=== PATIENT | male | born 2000 | race Caucasian/White ===

== ENCOUNTER 2022-07-26 06:15 | Outpatient (CLI) | payer MEDICAID, SELFPAY ==
--- NOTE | 2022-07-26 07:00 | US_ITS ---
WS: [id number] TESTICULAR ULTRASOUND HISTORY: RIGHT testicular pain. COMPARISON: None available. TECHNIQUE: Real-time and color Doppler imaging or utilized to perform a testicular ultrasound. Right testicle: 5.1 cm x 3.8 cm x 2.4 cm. Normal size and echogenicity. No mass or torsion. Normal color Doppler is present throughout. Systolic and diastolic velocities are both present. No significant hydrocele. Right epididymis: Normal size epididymis. Spermatocele within the RIGHT epididymal head measures 8 x 8 mm. No increased vascularity within the epididymis. Left testicle: 5.3 cm x 3.7 cm x 2.5 cm. Normal size and echogenicity. No mass or torsion. Normal color Doppler is present throughout. Systolic and diastolic velocities are both present. No significant hydrocele. Left epididymis: Normal epididymis with no increased vascularity. US/US scrotum [id number] IMPRESSION: 1. No testicular mass or torsion. 2. Symmetric color Doppler within each testicle. 3. Small RIGHT epididymal spermatocele.
== END 2022-07-26 06:16 | disposition home or self-care (01) ==
LOC: RAD 06:15
PROVIDERS: PCP Family Medicine; Visit Provider Family Medicine
DX: N50.89 Other specified disorders of the male genital organs (principal); N43.41 Spermatocele of epididymis, single
CPT/HCPCS: 76870

== ENCOUNTER 2023-10-11 09:44 | Emergency (ER) | payer SELFPAY ==
[2023-10-11 09:46] VITALS: BP 136/76; PULSE 78; RESP 20; O2SAT 100; BMI 24.3
--- NOTE | 2023-10-11 09:51 | XR_ITS ---
WS: [id number] Exam: XR KUB [id number] Date/Time of Exam: 10/11/2023 9:51 AM Reason For Exam: fb No bowel obstruction or free air. No sign of organ enlargement. No radiopaque foreign bodies are visu alized. IMPRESSION: 1. No acute finding. No radiopaque foreign body visualized.
--- NOTE | 2023-10-11 09:51 | XR_ITS ---
WS: [id number] Exam: XR chest 1V portable [id number] Date/Time of Exam: 10/11/2023 9:51 AM Reason For Exam: fb Comparison 05/13/2010. Findings: The lungs are clear and fully expanded. Costophrenic angles are sharp. No infiltrates. Bronchovascula r relief appears normal. Cardiac silhouette is unremarkable. Bony elements are intact. IMPRESSION: Unremarkable chest radiograph.
--- NOTE | 2023-10-11 09:59 | ED_ITS ---
HPI - General Adult General: Chief complaint: Airway/Esophagus Foreign Body Stated complaint: Swallowed water bottle cap Time Seen by Provider: 10/11/23 09:50 Source: patient and EMS Mode of arrival: EMS Limitations: no limitations History of Present Illness: 23-year-old male states he accidentally swallowed a water bottle Just prior to arrival. He states he had his mouth and accidentally swallowed it states he would like it may be stuck he is having some pain is upper abdomen and chest denies any shortness of breath denies any worsening proving factors currently. Associated symptoms: Deny chest pain, dyspnea, headache(s), nausea, rash or vomiting Review of Systems Const: Denies: fever(s), chills, body aches or change in appetite Eyes: Denies: blurry vision or eye discomfort ENMT: Denies: throat pain or dental pain Card: Denies: chest pain Resp: Denies: dyspnea GI: Denies: abdominal pain, nausea, vomiting or diarrhea : Denies: dysuria Musc: Denies: neck pain or back pain Skin/Breast: Denies: rash Neuro: Denies: headache(s) PFSH ED PFSH: Medical History No pertinent past medical history Surgical History No pertinent past surgical history Family History Grandmother Cancer Family/Other Cancer Mother Bone disease History of bone cyst Denies family history of Diabetes CAD (coronary artery disease) Clotting disorder Psychiatric illness Bleeding disorder Social History Smoking and tobacco/nicotine status: current every day tobacco/nicotine user cigarettes Packs smoked per day: 1 Years cigarettes smoked: 2 Second hand smoke exposure: Yes Alcohol intake: current Alcohol intake frequency: holidays/special occasions only Substance/Drug Use: never Adopted: No Lives independently: Yes Household members: family Marital status: Single Current occupational status: unemployed Current gender identity: Male Physical Exam Const: COMMON NORMALS: no acute distress, patient oriented x3 and healthy appearing HENMT: COMMON NORMALS: normocephalic and atraumatic HEAD & SCALP: normocephalic and atraumatic Eye: COMMON NORMALS: conjunctivae normal CONJUNCTIVA: Yes conjunctivae normal Neck/C-Spine: COMMON NORMALS: full ROM and supple Chest: COMMONS NORMALS: normal inspection of the chest Resp: COMMON NORMALS: normal respiratory effort, No retractions, No use of accessory muscles and clear to auscultation bilaterally AUSCULTATION: clear to auscultation bilaterally Cardio: COMMON NORMALS: regular rate, regular rhythm and No murmurs present (Cardio) RATE: regular rate RHYTHM: regular rhythm Extremity: COMMON NORMALS: normal to inspection and full ROM Neuro: COMMON NORMALS: patient oriented x3, moves all extremities and no focal motor deficits Psych: COMMON NORMALS: mental status grossly normal, Normal thought process present and cooperative THOUGHT PROCESS: Normal thought process present Skin: COMMON NORMALS: no rashes or lesions noted and no wounds GENERAL SKIN EXAM: no rashes or lesions noted Course Vital Signs: Vital signs: Vital Signs Pulse Rate 78 10/11/23 09:46 Respiratory Rate 20 H 10/11/23 09:46 Blood Pressure 136/76 10/11/23 09:46 Pulse Oximetry 100 10/11/23 09:46 Oxygen Delivery Me thod Room Air 10/11/23 09:46 MDM - General Adult Medical Decision Making Patient presents here with a swallowed foreign body as a bottle Of CT shows no signs of being stuck in his esophagus is no signs of aspirating and he is well- appearing here is feeling improved feel he stable for discharge this time he is worsening he is return he understands agrees to plan All radiology interpretation(s) finalized by discharge Discharge Plan Discharge Patient Disposition: Home Clinical Impression: Foreign body, swallowed Condition: Stable Prescriptions: No Action loratadine 10 mg Capsule 10 mg PO DAILY PRN (Reason: Allergy Symptoms) Discharge Orders: Discharge ED (Routine); Ordered 10/11/23 Ordered By: Hugh Chamorro Referrals: Danae Vincent MD [Primary Care Provider] - 1-3 days Discharge Diet: Advance as tolerated Discharge Activity: Resume usual activity Patient Instructions: Foreign Body - Swallowed, Foreign Body Ingestion (ED) Coding Level of Care Code ED 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
[2023-10-11] MEDS: lidocaine 2% viscous 15 ML, aluminum-mag hydrox-simethicon 30 ML, sucralfate oral liq 1 GM PO (10:02)
[2023-10-11] MEDS: glucagon 1 mg/mL KIT 1 mL IM (10:48)
[2023-10-11] MEDS: ondansetron 2 mg/ML SDV 2 mL 4 MG IVP (10:51)
--- NOTE | 2023-10-11 11:35 | CT_ITS ---
WS: [id number] CT NECK WITHOUT CONTRAST HISTORY: swallow fb TECHNIQUE: Contiguous 2 mm axial images are performed through the neck with intravenous contrast. Sag ittal and coronal reformats are also submitted. All CT scans at [facility] use at least one o f these dose optimization techniques: automated exposure control; mA and/or kV adjustment per patient size (includes targeted exams where dose is matched to clinical indication); or iterative reconstruc tion. CONTRAST: CONTRAST: None DLP: 230.70 mGy.cm COMPARISON: None available. Nasopharynx, oropharynx, hypopharynx and larynx are unremarkable. No soft tissue masses or abnormal e nhancement. Symmetric appearance to the airway. No foreign bodies identified. Torus tubarius and fossa of Rosenmuller and parapharyngeal fat are normal. No significant lymphadenopathy is identified. Thyroid gland and salivary glands are normally enhancing with no masses. No osseous abnormalities. Visualized portions of the skull base demonstrate no abnormalities. Orbits and globes are within norm al limits. No soft tissue masses. Visualized paranasal sinuses and mastoid air cells are normal. Lung apices are clear. IMPRESSION: Unremarkable neck CT. No radiopaque foreign body identified.
--- NOTE | 2023-10-11 11:35 | CT_ITS ---
WS: [id number] CT chest wo con [id number] HISTORY: swallow fb, plastic. TECHNIQUE: Axial imaging performed through the thorax. Coronal and sagittal reformats are submitted. All CT scans at [facility] use at least one of these dose optimization techniques: automated exposure control; mA and/or kV adjustment per patient size (includes targeted exams where dose is mat ched to clinical indication); or iterative reconstruction. CONTRAST: None DLP: 351.81 mGy.cm COMPARISON: None available. Lungs and central airway: Normal. Pleura: Normal. No pleural effusion. Heart and pericardium: Normal size heart with no pericardial effusion. Mediastinum and niurka: No mediastinum or hilar adenopathy. No mediastinal air. Vessels: Normal size aortic and pulmonary artery. No coronary artery calcifications. Chest wall and lower neck: No soft tissue masses. Upper abdomen: Normal. Osseous structures: No destructive process. IMPRESSION: Negative chest CT. No foreign body is noted within the chest or upper abdomen. Depending on the liliya nt of the plastic sometimes it is difficult to visualize by CT.
[2023-10-11 12:38] VITALS: BP 136/76; PULSE 78; RESP 20; O2SAT 100
== END 2023-10-11 12:39 | disposition home or self-care (01) ==
PROVIDERS: Emergency Provider Emergency Medicine; PCP Family Medicine
DX: T18.9XXA Foreign body of alimentary tract, part unspecified, initial encounter (principal); W44.E9XA Other non-magnetic metal objects entering into or through a natural orifice, initial encounter; F17.210 Nicotine dependence, cigarettes, uncomplicated
CPT/HCPCS: 70490; 71045; 71250; 74018; 96372; 96374; 99285; J1610; J2405

== ENCOUNTER 2024-08-13 22:38 | Emergency (ER) | payer SELFPAY ==
[2024-08-13 22:46] VITALS: BP 134/84; PULSE 105; RESP 16; TEMP 38.3; O2SAT 97
--- NOTE | 2024-08-13 22:53 | XRR_ITS ---
PROCEDURE INFORMATION: Exam: XR Chest Exam date and time: 08/13/2024 11:09 PM Age: 23 years old Clinical indication: Cough and fever; Additional info: Cough/fevers TECHNIQUE: Imaging protocol: Radiologic exam of the chest. Views: 1 view. COMPARISON: CT chest con [id number] 10/11/2023 11:45 AM FINDINGS: Lungs: Unremarkable. No consolidation. Pleural spaces: Unremarkable. No pleural effusion. No pneumothorax. Heart/Mediastinum: Unremarkable. No cardiomegaly. Bones/joints: Unremarkable. XR/XR chest 1V portable [id number] IMPRESSION: No acute findings.
--- NOTE | 2024-08-13 22:54 | ED_ITS ---
HPI - General Adult General: Chief complaint: Upper Respiratory Infection Stated complaint: Fever\V\Sore Throat Time Seen by Provider: 08/13/24 22:39 Source: patient Mode of arrival: ambulatory Limitations: no limitations History of Present Illness: Patient is a 23-year-old male who presents to ED today lanes of onset of fevers up to 104, diffuse body aches, chills, sore throat, nasal congestion, and a cough. Symptoms all starting today. Denies known sick contact. States he does work at [employer] and around the general public. He had one episode of vomiting this morning. He is not having any abdominal pain. No changes in bowel movements. No urinary symptoms. No rash. He denies severe headache or neck pain/stiffness. Onset (ago): hour(s) Severity: moderate Pain Consistency: constant Relieving factors: none Exacerbating factors: none Associated symptoms: Reports vomiting (x 1 this AM); Deny chest pain, dyspnea, headache(s), nausea or rash Treatments prior to arrival: NSAID Related Data Home Medications Medication Instructions Recorded Confirmed loratadine 10 mg capsule 10 mg PO DAILY PRN Allergy Symptoms 10/11/23 10/11/23 Allergies Allergy/AdvReac Type Severity Reaction Status Date / Time aspirin Allergy Unknown Verified 12/23/22 13:26 Review of Systems Const: Reports: fever(s), chills and body aches Eyes: Denies: change in vision ENMT: Reports: throat pain, odynophagia and nasal congestion; Denies: ear or mastoid pain Card: Denies: chest pain Resp: Reports: non-productive cough; Denies: dyspnea, wheezing, hemoptysis or chest congestion GI: Reports: vomiting (x 1 this AM); Denies: abdominal pain, nausea or diarrhea : Denies: flank pain, difficulty urinating, dysuria, urinary frequency, urinary urgency or urinary hesitancy Musc: Reports: other (diffuse body aches); Denies: neck pain, back pain, extremity pain, extremity swelling, joint pain or joint swelling Skin/Breast: Denies: rash Neuro: Denies: headache(s), numbness in extremities, weakness in extremities, sensory changes or dizziness PFSH ED PFSH: Medical History No pertinent past medical history Surgical History No pertinent past surgical history Family History Grandmother Cancer Family/Other Cancer Mother Bone disease History of bone cyst Denies family history of Diabetes CAD (coronary artery disease) Clotting disorder Psychiatric illness Bleeding disorder Social History Smoking and tobacco/nicotine status: current every day tobacco/nicotine user cigarettes Packs smoked per day: 1 Years cigarettes smoked: 2 Second hand smoke exposure: Yes Alcohol intake: current Alcohol intake frequency: holidays/special occasions only Substance/Drug Use: never Adopted: No Lives independently: Yes Household members: family Marital status: Single Current occupational status: unemployed Current gender identity: Male Physical Exam Const: COMMON NORMALS: no acute distress, average body habitus, patient oriented x3, no limitations, alert and well nourished GENERAL APPEARANCE: cooperative and ill appearing ORIENTATION/CONSCIOUSNESS: Yes awake, Yes oriented to person, Yes oriented to place and Yes oriented to time HENMT: COMMON NORMALS: normocephalic, atraumatic, hearing grossly normal bilaterally, external ears normal, EAC's normal, TM's normal bilaterally, Normal external nose present, Normal nasal mucous membranes and turbinates present and moist oral mucous membranes HEAD & SCALP: normal to inspection, normocephalic and atraumatic FACE & SINUS: normal facial exam and sinuses nontender NOSE: Normal external nose present and Normal nasal mucous membranes and turbinates present EXTERNAL EAR: Yes external ears normal EXTERNAL AUDITORY CANAL: EAC's normal TYMPANIC MEMBRANE: TM's normal bilaterally MOUTH: Normal oral and palatal mucosa present and lip normal THROAT: posterior oropharynx normal, uvula midline and abnormal tonsil bilateral erythema, exudates and hypertrophy Eye: COMMON NORMALS: Equal, round and reactive pupils present, EOMs intact bilaterally and conjunctivae normal CONJUNCTIVA: Yes conjunctivae normal PUPIL: Yes Equal, round and reactive pupils present Neck/C-Spine: COMMON NORMALS: no lymphadenopathy Resp: COMMON NORMALS: normal respiratory effort and clear to auscultation bilaterally AUSCULTATION: clear to auscultation bilaterally Cardio: COMMON NORMALS: regular rhythm RATE: tachycardic (mild-febrile) RHYTHM: regular rhythm GI: COMMON NORMALS: Normal to inspection, nondistended, normoactive bowel so unds present, Soft to palpation and non-tender PALPATION: Yes Soft to palpation Extremity: GENERAL: Yes normal exam except as noted Neuro: PAM COMA SCALE: document GCS findings Pam coma scale eye opening: Spontaneous [place] coma scale verbal response: Orientated Pam coma scale motor response: Obey commands Pam coma scale total score: 15 COMMON NORMALS: patient oriented x3, moves all extremities, no focal motor deficits and no sensory deficits noted SENSORIUM/ORIENTATION: Yes alert, Yes oriented to person, Yes oriented to place and Yes oriented to time Skin: COMMON NORMALS: no rashes or lesions noted GENERAL SKIN EXAM: no rashes or lesions noted Course Vital Signs: Vital signs: Vital Signs Temperature 100.9 F H 08/13/24 22:46 Pulse Rate 91 08/13/24 23:08 Respiratory Rate 16 08/13/24 22:46 Blood Pressure 130/75 08/13/24 23:08 Pulse Oximetry 96 08/13/24 23:08 Oxygen Delivery Me thod Room Air 08/13/24 23:08 MDM - General Adult Medical Decision Making Patient's COVID/flu/RSV swab is negative. He is positive for strep. CXR is unremarkable. Patient was treated with IM Bicillin prior to discharge. Return precautions discussed. Medical Records I reviewed the patient's medical records. Lab Data I reviewed the patient's lab results. Laboratory Results Coronavirus (PCR) Negative (Negative) 08/13/24 22:54 Influenza A (PCR) Negative (Negative) 08/13/24 22:54 Influenza Type B (PCR) Negative (Negative) 08/13/24 22:54 RSV (PCR) Negative (Negative) 08/13/24 22:54 Group A Strep Rapid Positive (Negative) H 08/13/24 22:54 XR interpretation done by ED provider, pending radiology final review Discharge Plan Discharge Patient Disposition: Home Clinical Impression: Acute streptococcal tonsillitis Qualifiers: Streptococcal tonsillitis recurrence: non-recurrent Qualified Code(s): J03.00 - Acute streptococcal tonsillitis, unspecified Condition: Stable Prescriptions: No Action loratadine 10 mg Capsule 10 mg PO DAILY PRN (Reason: Allergy Symptoms) Discharge Orders: Discharge ED (Routine); Ordered 08/13/24 Ordered By: Kelly Low Patient Instructions: Strep Throat (DC), Strep Throat - Adult Activity Restrictions/Additional Instructions: As we discussed, you tested positive for strep. Your COVID/flu/RSV swab was negative. Your chest x-ray appears normal. You were given IM antibiotics for your strep and do not require any further antibiotics at this time. You need to continue alternating 1000mg Tylenol every 4-6 hours and 800mg Ibuprofen every 6- 8 hours for treatment of your fevers and body aches. You need to return to the emergency department for worsening symptoms, uncontrollable fevers, inability to swallow, difficulty breathing, generally feeling worse or unwell, or any other concerns you may have. I hope you begin to feel better soon. 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
[2024-08-13 23:08] VITALS: BP 130/75; PULSE 91; O2SAT 96
[2024-08-13 23:10] LABS: Rapid Strep A Test Positive (Negative)
[2024-08-13 23:39] LABS: Covid PCR NEGATIVE (Negative); Influenza A NEGATIVE (Negative); Influenza B NEGATIVE (Negative); Respiratory Syncytial Virus Ce NEGATIVE (Negative)
[2024-08-13] MEDS: penicillin g (L-A) 1,200,000 unit/2 mL Syr 1200000 UNIT IM (23:49)
[2024-08-14 00:04] VITALS: BP 127/73; PULSE 80; O2SAT 93
== END 2024-08-14 00:06 | disposition home or self-care (01) ==
PROVIDERS: Emergency Provider Physician Assistant
DX: J03.00 Acute streptococcal tonsillitis, unspecified (principal); Z11.52 Encounter for screening for COVID-19; F17.210 Nicotine dependence, cigarettes, uncomplicated
CPT/HCPCS: 71045; 87637; 87880; 96372; 99284; J0561

== ENCOUNTER 2024-09-20 11:48 | Inpatient (IN) | payer SELFPAY ==
[2024-09-20 11:52] VITALS: BP 136/92; PULSE 112; RESP 18; TEMP 36.7; O2SAT 99; BMI 24.3
[2024-09-20 12:33] LABS: Basophils # 0.1 10^3/uL (0.0-0.1); Basophils % 0.4 %; Eosinophils # 0.1 10^3/uL (0.0-0.8); Eosinophils % 0.7 %; Hematocrit 51.1 % (37-53); Lymphocytes # 2.2 10^3/uL (0.8-4.8); Lymphocytes % 19.4 %; Mean Corpuscular HGB Conc 34.2 g/dL (30-55); Mean Corpuscular Hemoglobin 30.9 pg (27-33); Mean Corpuscular Volume 90.1 fl (82-101); Mean Platelet Volume 10.2 fL (7.4-10.4); Monocytes # 0.7 10^3/uL (0.2-0.9); Neutrophils # 8.38 10^3/uL (1.8-7.7); Neutrophils % 72.9 %; Nucleated Red Blood Cells % 0 %; Platelet Count 263 10^3/cmm (157-399); Red Blood Count 5.67 10^6/uL (3.85-5.65); Red Cell Distribution Width 11.8 % (12.1-15.1)
[2024-09-20 12:44] LABS: Acetaminophen < 5.0 ug/mL (10-30); Alanine Aminotransferase 18 U/L (0-41); Alcohol Level < 10 mg/dL (0-10); Alkaline Phosphatase 125 U/L (40-130); Anion Gap 24.4 (5-19); Aspartate Amino Transferase 20 U/L (0-40); Blood Urea Nitrogen 13 mg/dL (6-20); Calcium 9.9 mg/dL (8.5-10.5); Carbon Dioxide 18 mmol/L (22-29); Chloride 99 mmol/L (98-107); Creatinine Clr Calc Pharmacy 134.7746; Globulin 3.2 g/dL (1.3-4.6); Glomerular Filtration Rate 104.6 mL/min (90-130); Glucose 112 mg/dL (65-115); Osmolality Calculated 287 mOsm/kg (285-295); Potassium 3.4 mmol/L (3.5-5.1); Salicylate < 0.3 mg/dL (3-10); Sodium 138 mmol/L (136-145); Total Bilirubin 1.1 mg/dL (0.15-1.2); Total Protein 8.2 g/dL (6.6-8.7)
--- NOTE | 2024-09-20 12:54 | ED.C_ITS ---
HPI - Psych 2 General: Chief Complaint: Psychiatric Symptoms Stated Complaint: MHE Time Seen by Provider: 09/20/24 11:55 Source: patient Mode of arrival: ambulatory Limitations: no limitations History of Present Illness: This patient made his way to the [facility] today on a voluntary basis. He was brought here by his mother and his saundra with whom he lives. He states over the past 2 weeks or more he has had feelings of sadness and depression. He states that he has had some dreams which seem to be pervasive and he felt like he was actually in the dream and he had bad thoughts which included thoughts of not wanting to be living anymore. He had no specific plan on harming himself. He does states that he has been drinking alcohol more over the past couple weeks but he does not know why. Previously he drank very infrequently. He denies any history of depression or mental illness. He states his appetite is then decreased over the past couple weeks but he has been sleeping okay. 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 His relationship has been stable however he has been recently moved in with his saundra at his saundra's parents which has been a bit stressful for him in addition to some other external stressors such as increasing bills a car that needs repair etc. he does use marijuana on a regular basis but obtained from the dispensary MD complaint: feels depressed Duration: getting worse Associated psychiatric symptoms: depression Associated symptoms: Reports depression and suicidal ideation; Deny auditory hallucinations Related Data Home Medications ?Medication ?Instructions ?Recorded ?Confirmed loratadine 10 mg capsule 10 mg PO DAILY PRN Allergy S ymptoms 10/11/23 09/20/24 Allergies Allergy/AdvReac Type Severity Reaction Status Date / Time aspirin Allergy Unknown Verified 12/23/22 13:26 Review of Systems 2 Const: Denies: fever(s) or chills Eyes: Denies: change in vision ENMT: Denies: throat pain or odynophagia Card: Denies: chest pain, palpitations, irregular heart rhythm, syncope or pre-syncope Resp: Denies: dyspnea, productive cough or non-productive cough GI: Denies: abdominal pain, nausea, vomiting or diarrhea : Denies: flank pain, difficulty urinating, dysuria or urinary frequency Musc: Denies: neck pain, back pain, extremity pain or extremity swelling Skin/Breast: Denies: rash Neuro: Denies: headache(s), numbness in extremities, weakness in extremities, dizziness or confusion Psych: Reports: depression, loss of interest, change in appetite and suicidal ideation; Denies: auditory hallucinations or tactile hallucinations PFSH ED 2 PFSH: Medical History No pertinent past medical history Surgical History No pertinent past surgical history Family History Grandmother Cancer Family/Other Cancer Mother Bone disease History of bone cyst Denies family history of Diabetes CAD (coronary artery disease) Clotting disorder Psychiatric illness Bleeding disorder Social History Smoking and tobacco/nicotine status: current every day tobacco/nicotine user cigarettes Packs smoked per day: 1 Years cigarettes smoked: 2 Second hand smoke exposure: Yes Alcohol intake: current Alcohol intake frequency: holidays/special occasions only Substance/Drug Use: never Adopted: No Lives independently: Yes Household members: family Marital status: Single Current occupational status: unemployed Current gender identity: Male Physical Exam 2 Narrative: EXAM NARRATIVE: He makes good eye contact and answers questions however he has speaks in a low volume voice with monotonous tone Const: COMMON NORMALS: average body habitus, patient oriented x3, healthy appearing and alert GENERAL APPEARANCE: cooperative HENMT: COMMON NORMALS: Normal nasal mucous membranes and turbinates present and moist oral mucous membranes NOSE: Normal nasal mucous membranes and turbinates present Eye: COMMON NORMALS: Equal, round and reactive pupils present and conjunctivae normal CONJUNCTIVA: Yes conjunctivae normal PUPIL: Yes Equal, round and reactive pupils present Neck/C-Spine: COMMON NORMALS: full ROM Resp: COMMON NORMALS: normal respiratory effort and No use of accessory muscles EFFORT & INSPECTION: Yes able to speak in complete sentences Cardio: COMMON NORMALS: regular rate and regular rhythm RATE: regular rate RHYTHM: regular rhythm GI: COMMON NORMALS: Normal to inspection, nondistended, normoactive bowel sounds present Back/Pelvis: COMMON NORMALS: thoracic and lumbar spine normal to inspection and thoraco-lumbar ROM normal Extremity: COMMON NORMALS: normal to inspection and full ROM Neuro: COMMON NORMALS: patient oriented x3, moves all extremities, no focal motor deficits and no sensory deficits noted SENSORIUM/ORIENTATION: Yes alert Psych: COMMON NORMALS: mental status grossly normal and Normal thought process present ATTITUDE: Yes Withdrawn affect present ACTIVITY/MOTOR BEHAVIOR: Y es appropriate eye contact SPEECH: Yes soft MOOD & AFFECT: Yes depressed mood THOUGHT PROCESS: Normal thought process present THOUGHT CONTENT: Yes Suicidality present INSIGHT: Fair insight present (Psych) JUDGEMENT: Fair judgement present (Psych) Skin: COMMON NORMALS: no rashes or lesions noted and no jaundice GENERAL SKIN EXAM: no rashes or lesions noted Course 2 Reevaluation(s): Reevaluation #1: Discussed eventual plans of care with the patient. He is risk of self-harm is certainly not high but it certainly also uncertain at this time. Given that this is Monday and the logistics of getting him outpatient follow-up quickly is limited discussed with the attending psychiatrist and we will plan on putting him in observational status for rehab mental health evaluation and potential initiation of antidepressant. The patient is willing to do so. Time: 13:32 Consultations: Consultation #1: Discussed with Dr. Hale who agrees to plan of care Time: 13:34 Vital Signs: Vital signs: Vital Signs Temperature 98.0 F 09/20/24 11:52 Pulse Rate 112 H 09/20/24 11:52 Respiratory Rate 18 09/20/24 11:52 Blood Pressure 136/92 09/20/24 11:52 Pulse Oximetry 99 09/20/24 11:52 Oxygen Delivery Me thod Room Air 09/20/24 11:52 MDM - Psych Medical Decision Making This patient presented as noted in the HPI. He did have evidence of acute depression this been precipitated by unknown but likely social and family stressors that has worsened over the past 2 weeks with no prior mental health illness history. There has been suicidal ideations without plan. There was no evidence of a ongoing medical condition that would be contributory to his current presentation and he is medically cleared and given his current presentation is reasonable for us to put him in [employer] used for mental health evaluation and initiation of treatment as indicated. Differential Diagnosis Likely depression Lab Data 09/20/24 11:55 09/20/24 11:55 Laboratory Results WBC 11.50 10^3/uL (3.29-11.43) H 09/20/24 11:55 RBC 5.67 10^6/uL (3.85-5.65) H 09/20/24 11:55 Hgb 17.50 g/dL (11.27-16.99) H 09/20/24 11:55 Hct 51.1 % (37-53) 09/20/24 11:55 MCV 90.1 fl (82-101) 09/20/24 11:55 MCH 30.9 pg (27-33) 09/20/24 11:55 MCHC 34.2 g/dL (30-55) 09/20/24 11:55 RDW 11.8 % (12.1-15.1) L 09/20/24 11:55 Plt Count 263 10^3/cmm (157-399) 09/20/24 11:55 MPV 10.2 fL (7.4-10.4) 09/20/24 11:55 Neut % (Auto) 72.9 % 09/20/24 11:55 Lymph % (Auto) 19.4 % 09/20/24 11:55 [place] % (Auto) 6.0 % 09/20/24 11:55 Eos % (Auto) 0.7 % 09/20/24 11:55 Baso % (Auto) 0.4 % 09/20/24 11:55 Neut # (Auto) 8.38 10^3/uL (1.8-7.7) H 09/20/24 11:55 Lymph # (Auto) 2.2 10^3/uL (0.8-4.8) 09/20/24 11:55 [place] # (Auto) 0.7 10^3/uL (0.2-0.9) 09/20/24 11:55 Eos # (Auto) 0.1 10^3/uL (0.0-0.8) 09/20/24 11:55 Baso # (Auto) 0.1 10^3/uL (0.0-0.1) 09/20/24 11:55 Nucleated RBC % (auto) 0 % 09/20/24 11:55 Nucleated RBCs # 0.0 /100WBC 09/20/24 11:55 Sodium 138 mmol/L (136-145) 09/20/24 11:55 Potassium 3.4 mmol/L (3.5-5.1) L 09/20/24 11:55 Chloride 99 mmol/L (98-107) 09/20/24 11:55 Carbon Dioxide 18 mmol/L (22-29) L 09/20/24 11:55 Anion Gap 24.4 (5-19) H 09/20/24 11:55 BUN 13 mg/dL (6-20) 09/20/24 11:55 Creatinine 0.9 mg/dL (0.7-1.2) 09/20/24 11:55 GFR Calculation 104.6 mL/min (90-130) 09/20/24 11:55 Glucose 112 mg/dL (65-115) 09/20/24 11:55 Calculated Osmolality 287 mOsm/kg (285-295) 09/20/24 11:55 Calcium 9.9 mg/dL (8.5-10.5) 09/20/24 11:55 Total Bilirubin 1.1 mg/dL (0.15-1.2) 09/20/24 11:55 AST 20 U/L (0-40) 09/20/24 11:55 ALT 18 U/L (0-41) 09/20/24 11:55 Alkaline Phosphatase 125 U/L (40-130) 09/20/24 11:55 Total Protein 8.2 g/dL (6.6-8.7) 09/20/24 11:55 Albumin 5.0 g/dL (3.5-5.2) 09/20/24 11:55 Globulin 3.2 g/dL (1.3-4.6) 09/20/24 11:55 Salicylates < 0.3 mg/dL (3-10) L 09/20/24 11:55 Urine Opiates Screen Negative ng/mL (Negative) 09/20/24 12:06 Acetaminophen < 5.0 ug/mL (10-30) L 09/20/24 11:55 Ur Barbiturates Screen Negative ng/mL (Negative) 09/20/24 12:06 Ur Phencyclidine Scrn Negative ng/mL (Negative) 09/20/24 12:06 Ur Amphetamines Screen Negative ng/mL (Negative) 09/20/24 12:06 U Benzodiazepines Scrn Negative ng/mL (Negative) 09/20/24 12:06 Urine Cocaine Screen Negative ng/mL (Negative) 09/20/24 12:06 U Marijuana (THC) Screen Positive ng/mL (Negative) H 09/20/24 12:06 Ethyl Alcohol < 10 mg/dL (0-10) 09/20/24 11:55 No radiology studies performed this visit Discharge Plan Discharge Patient Disposition: Admitted As Inpatient Clinical Impression: Depression Condition: Stable Prescriptions: No Action loratadine 10 mg Capsule 10 mg PO DAILY PRN (Reason: Allergy Symptoms) Print Language: Estonian Coding Level of Care Code ED Manager Photography 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
[2024-09-20 12:55] LABS: Amphetamines Screen Urine Negative (Negative); Barbiturates Screen Urine Negative (Negative); Benzodiazepines Screen Urine Negative (Negative); Cocaine Screen Urine Negative (Negative); Opiate Screen Urine Negative (Negative); PCP Screen Urine Negative (Negative); THC Screen Urine Positive (Negative)
[2024-09-20] MEDS: nicotine 14 mg Patch 1 PATCH TRANSDERMA (13:27)
[2024-09-20 15:16] VITALS: BP 139/86; PULSE 89; RESP 16; TEMP 36.3; O2SAT 98
[2024-09-20] MEDS: hyDROXYzine 25 mg Capsule 50 MG PO (17:43)
--- NOTE | 2024-09-20 17:43 | PC.NURSE ---
PRN VISTARIL 50 MG GIVEN PO PER PT C/O STATED ANXIETY
[2024-09-20 22:00] VITALS: BP 129/91; PULSE 103; RESP 18; TEMP 36.3; O2SAT 95
[2024-09-20] MEDS: trazodone 50 mg Tablet PO (22:39)
[2024-09-20] MEDS: OLANZapine 5 mg ODT PO (22:39)
[2024-09-21 06:00] VITALS: BP 113/70; PULSE 81; RESP 16; TEMP 36.3; O2SAT 99
--- NOTE | 2024-09-21 07:52 | W.PM.NPUH&PS ---
Providers/Chief Complaint Admitting Physician: Royer Hale MD Chief Complaint: MHE [facility] NPU History of Present Illness Kalyan Reed is a 24 year old male Chief Complaint: Psychiatric Symptoms Stated Complaint: MHE Time Seen by Provider: 09/20/24 11:55 Source: patient Mode of arrival: ambulatory Limitations: no limitations History of Present Illness: This patient made his way to the [facility] today on a voluntary basis. He was brought here by his mother and his fianc?e with whom he lives. He states over the past 2 weeks or more he has had feelings of sadness and depression. He states that he has had some dreams which seem to be pervasive and he felt like he was actually in the dream and he had bad thoughts which included thoughts of not wanting to be living anymore. He had no specific plan on harming himself. He does states that he has been drinking alcohol more over the past couple weeks but he does not know why. Previously he drank very infrequently. He denies any history of depression or mental illness. He states his appetite is then decreased over the past couple weeks but he has been sleeping okay. 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 His relationship has been stable however he has been recently moved in with his fidallin?e at his fracnia?e's parents which has been a bit stressful for him in addition to some other external stressors such as increasing bills a car that needs repair etc. he does use marijuana on a regular basis but obtained from the dispensary MD complaint: feels depressed Duration: getting worse Associated psychiatric symptoms: depression Associated symptoms: Reports depression and suicidal ideation; Deny auditory hallucinations. He was admitted to the neuropsychiatric unit for definitive treatment of those issues. He is unknown to [facility] psychiatry through inpatient or outpatient services. But presents today reporting being very depressed and needing help. Meds NPU Home Medications ?Medication ?Instructions ?Recorded ?Confirmed ?Last Taken ?Type No Known Home Medications 09/20/24 09/20/24 Unknown History Allergies Allergy/AdvReac Type Severity Reaction Status Date / Time aspirin Allergy Unknown Verified 12/23/22 13:26 PFS NPU PFSH: Medical History No pertinent past medical history Surgical History No pertinent past surgical history Family History Grandmother Cancer Family/Other Cancer Mother Bone disease History of bone cyst Denies family history of Diabetes CAD (coronary artery disease) Clotting disorder Psychiatric illness Bleeding disorder Social History Smoking and tobacco/nicotine status: current every day tobacco/nicotine user cigarettes Packs smoked per day: 1 Years cigarettes smoked: 2 Second hand smoke exposure: Yes Alcohol intake: current Alcohol intake frequency: holidays/special occasions only Substance/Drug Use: never Adopted: No Lives independently: Yes Household members: family Marital status: Single Current occupational status: unemployed Current gender identity: Male Mental Status Exam MSE Comments: This is a well-nourished well-developed white male in hospital scrubs with limited grooming and eye contact. No abnormal movements except for psychomotor retardation. Cooperative with exam in mild to moderate distress. Speech was decreased rate and volume. Mood described as depressed, affect congruent and subdued. Thought process was organized. Thought content: Patient endorsed some suicidal feelings but denied homicidal ideation, there were no delusions reported or noted, he denied any auditory or visual hallucinations. Attention and concentration were intact and memory appeared mostly reliable but no more formally tested. He is alert and oriented x 3. Insight, judgment and impulse control are limited versus impaired. Vitals/I&O/Wt Last Vital Signs Temp 97.4 F L 09/21/24 06:00 Pulse 81 09/21/24 06:00 Resp 16 09/21/24 06:00 BP 113/70 09/21/24 06:00 Pulse Ox 99 09/21/24 06:00 O2 Del Method Room Air 09/20/24 15:22 Weight last 48 hrs Weight 77.111 kg Data NPU 09/20/24 11:55 09/20/24 11:55 A&P Assessment and plan Plan This is a 24-year-old white male with reported struggles recently with depression and anxiety but no previous exposure to medication who presents open to a trial of medication and getting connected with treatment. 1. Start Prozac 20 mg p.o. daily. 2. Encourage individual, group and milieu therapy. 3. Continue every 15 minute checks for safety. 4. Obtain collateral information. 5. Encourage sober living treatment after discharge at the highest level of care to which he is willing to commit. PDMP PDMP Reviewed: Not Reviewed Involuntary Hold Information 96 Hour Hold: 96 Hour Involuntary Admission: No Attestations NPU Medical Necessity Statement*: Inpatient hospitalization is medically necessary and the clinically appropriate intervention at this time. We will monitor/initiate medications and make changes as indicated. He will be in the hospital for over 2 midnights. Likely length of stay 4 to 6 days. Coding Level of Care Code Acute Code 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
[2024-09-21] MEDS: hyDROXYzine 25 mg Capsule 50 MG PO (08:45)
[2024-09-21] MEDS: nicotine 21 mg Patch 1 PATCH TRANSDERMA (08:45)
[2024-09-21] MEDS: OLANZapine 5 mg ODT PO (09:22)
--- NOTE | 2024-09-21 09:25 | PC.NURSE ---
Morning assessment patient intrusive. patient saying such things as, Can I punch you . Patient asks, Are you snow white? Patient says that I need to kill myself, can I have a knife now Patient yelling in the halls, patient annoying other patients on the unit. Patient agreeable to taking PRN medication to help bring her down. Concern for her safety from other patients who are voicing irritability and frustration.
[2024-09-21] MEDS: haloperidol 5 mg Tablet PO (10:43)
--- NOTE | 2024-09-21 10:44 | PC.NURSE ---
Patient tearful after a phone call. This nurse offered to talk, patient stated that if he did, he would probably cry, but maybe later . Patient agreeable to try haldol 5mg PO. Patient pacing hallway, and is wringing his hands as he walks.
[2024-09-21 14:00] VITALS: BP 124/80; PULSE 83; RESP 16; TEMP 36.4; O2SAT 98
[2024-09-21] MEDS: fluoxetine 20 mg Capsule PO (15:10)
[2024-09-21 21:38] VITALS: BP 117/75; PULSE 86; RESP 18; TEMP 36.6; O2SAT 99
[2024-09-22 05:53] VITALS: BMI 25.7
[2024-09-22 06:00] VITALS: BP 105/68; PULSE 78; RESP 18; TEMP 36.4; O2SAT 100
[2024-09-22] MEDS: fluoxetine 20 mg Capsule PO (08:18)
[2024-09-22] MEDS: hyDROXYzine 25 mg Capsule 50 MG PO ×2 (08:18→20:11)
[2024-09-22] MEDS: nicotine 21 mg Patch 1 PATCH TRANSDERMA (08:18)
[2024-09-22] MEDS: OLANZapine 5 mg ODT PO (11:09)
[2024-09-22] MEDS: acetaminophen 325 mg Tablet 650 MG PO (12:26)
[2024-09-22 14:00] VITALS: BP 115/73; PULSE 81; RESP 16; TEMP 36.4; O2SAT 98
--- NOTE | 2024-09-22 17:11 | P.NPUPN_ITS ---
Subjective NPU 2 Subjective: 24-year-old male admitted with depressio n and increased alcohol consumption with suicidal ideation without a plan. He had reported that he had been having more depression over the past few weeks leading to his hospitalization. He had reported having success in the past with Prozac and stated that he had no side effects from the restarting of Prozac yesterday. He had reported struggles with sleep. He had reported having no psychotherapy at this time. He had reported some diminished appetite and low motivation. He had endorsed some complaints about loneliness. He had reported sleep continuity disruption. Mental Status Exam 2 MSE Comments: This is a well-nourished well-developed white male in hospital scrubs with limited grooming and eye contact. No abnormal movements except for psychomotor retardation. He was cooperative with exam in mild distress. Speech was normal in rate and volume today. Mood described as depressed. Affect was mood congruent and restricted in range. Thought process was linear and organized. Thought content: Patient endorsed no suicidal ideation or homicidal ideation, There were no delusions reported or noted, he denied any auditory or visual hallucinations. Attention and concentration were intact and memory appeared mostly reliable but no more formally tested. He is alert and oriented x 3. Insight, judgment and impulse control are limited versus impaired. Vitals/I&O/Wt Last Vital Signs Temp 97.5 F L 09/22/24 14:00 Pulse 81 09/22/24 14:00 Resp 16 09/22/24 14:00 BP 115/73 09/22/24 14:00 Pulse Ox 98 09/22/24 14:00 O2 Del Method Room Air 09/22/24 06:00 Weight last 48 hrs Weight 81.306 kg Data NPU 09/20/24 11:55 09/20/24 11:55 A&P Assessment and plan (1) Major depressive disorder, single episode, severe with anxious distress: Plan This is a 24-year-old white male with reported struggles recently with depression and anxiety but no previous exposure to medication who presents open to a trial of medication and getting connected with treatment. 1. Continue Prozac 20 mg p.o. daily. 2. Encourage individual, group and milieu therapy. 3. Continue every 15 minute checks for safety. 4. Obtain collateral information. 5. Encourage sober living treatment after discharge at the highest level of care to which he is willing to commit. PDMP PDMP Reviewed: Not Reviewed Involuntary Hold Information 2 96 Hour Hold: 96 Hour Involuntary Admission: No Attestations NPU 2 Medical Necessity Statement*: Inpatient hospitalization is medically necessary and the clinically appropriate intervention at this time. We will monitor/initiate medications and make changes as indicated. The patient's likely length of stay is 4 to 6 days. Coding Level of Care Code Acute Code for Chg Fwd Diagnoses Major depressive disorder, single episode, severe with anxious distress F32.2
[2024-09-22] MEDS: trazodone 50 mg Tablet PO (20:11)
[2024-09-22 22:00] VITALS: BP 152/80; PULSE 78; RESP 18; TEMP 36.6; O2SAT 98
[2024-09-23] MEDS: acetaminophen 325 mg Tablet 650 MG PO (05:58)
[2024-09-23 06:00] VITALS: BP 128/72; PULSE 77; RESP 17; TEMP 36.4; O2SAT 99
[2024-09-23] MEDS: fluoxetine 20 mg Capsule PO (08:31)
[2024-09-23] MEDS: nicotine 21 mg Patch 1 PATCH TRANSDERMA (08:31)
[2024-09-23] MEDS: hyDROXYzine 25 mg Capsule 50 MG PO (12:37)
[2024-09-23 14:00] VITALS: BP 130/74; PULSE 98; RESP 16; TEMP 36.6; O2SAT 98
--- NOTE | 2024-09-23 14:19 | P.NPUDS_ITS ---
Diagnoses at Discharge Discharge Diagnosis (1) Major depressive disorder, single episode, severe with anxious distress: Status: Acute Reason for Visit Reason for Visit: MHE Brief History: History of Present Illness Kalyan Reed is a 24 year old male Chief Complaint: Psychiatric Symptoms Stated Complaint: MHE Time Seen by Provider: 09/20/24 11:55 Source: patient Mode of arrival: ambulatory Limitations: no limitations History of Present Illness: This patient made his way to the [facility] today on a voluntary basis. He was brought here by his mother and his saundra with whom he lives. He states over the past 2 weeks or more he has had feelings of sadness and depression. He states that he has had some dreams which seem to be pervasive and he felt like he was actually in the dream and he had bad thoughts which included thoughts of not wanting to be living anymore. He had no specific plan on harming himself. He does states that he has been drinking alcohol more over the past couple weeks but he does not know why. Previously he drank very infrequently. He denies any history of depression or mental illness. He states his appetite is then decreased over the past couple weeks but he has been sleeping okay. 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 His relationship has been stable however he has been recently moved in with his saundra at his saundra's parents which has been a bit stressful for him in addition to some other external stressors such as increasing bills a car that needs repair etc. he does use marijuana on a regular basis but obtained from the dispensary MD complaint: feels depressed Duration: getting worse Associated psychiatric symptoms: depression Associated symptoms: Reports depression and suicidal ideation; Deny auditory hallucinations. He was admitted to the neuropsychiatric unit for definitive treatment of those issues. He is unknown to [facility] psychiatry through inpatient or outpatient services. But presents today reporting being very depressed and needing help. Hospital Course Hospital Course During the hospitalization, the patient had routine laboratory studies which were within normal limits except for a few outliers.? Additionally, there was a general medical evaluation which was also within normal limits and revealed no new acute processes.? At the time of discharge, lethality was denied. ? Mood and anxiety were well managed.? The patient endorsed a plan to avoid all drugs of abuse and follow up with the aftercare recommendations of the treatment team.? The patient was evaluated and deemed to be absent credible lethality and had achieved the maximum benefit from an inpatient hospitalization, and so was discharged. ?Patient was started on Prozac and titrated to a dose of 20mg daily at the time of discharge. Involuntary Hold Information 96 Hour Hold: 96 Hour Involuntary Admission: No Mental Status Exam MSE Comments: This is a well-nourished well-developed white male in hospital scrubs with limited grooming and eye contact. No abnormal movements except for psychomotor retardation. He was cooperative with exam in mild distress. Speech was normal in rate and volume today. Mood described as better. Affect was less restricted on discharge. Thought process was linear and organized. Thought content: Patient endorsed no suicidal ideation or homicidal ideation, There were no delusions reported or noted, he denied any auditory or visual hallucinations. Attention and concentration were intact and memory appeared mostly reliable but no more formally tested. He is alert and oriented x 3. Insight was fair. Judgment was fair. Impulse control was fair at discharge. Discharge Data Studies Completed and Pending: Laboratory Results WBC 11.50 10^3/uL (3. 29-11.43) H 09/20/24 11:55 RBC 5.67 10^6/uL (3.8 5-5.65) H 09/20/24 11:55 Hgb 17.50 g/dL (11.27 -16.99) H 09/20/24 11:55 Hct 51.1 % (37-53) 09/20/24 11:55 MCV 90.1 fl (82-101) 09/20/24 11:55 MCH 30.9 pg (27-33) 09/20/24 11:55 MCHC 34.2 g/dL (30-55) 09/20/24 11:55 RDW 11.8 % (12.1-15.1 ) L 09/20/24 11:55 Plt Count 263 10^3/cmm (157 -399) 09/20/24 11:55 MPV 10.2 fL (7.4-10.4 ) 09/20/24 11:55 Neut % (Auto) 72.9 % 09/20/24 11:55 Lymph % (Auto) 19.4 % 09/20/24 11:55 [facility] % (Auto) 6.0 % 09/20/24 11:55 Eos % (Auto) 0.7 % 09/20/24 11:55 Baso % (Auto) 0.4 % 09/20/24 11:55 Neut # (Auto) 8.38 10^3/uL (1.8 -7.7) H 09/20/24 11:55 Lymph # (Auto) 2.2 10^3/uL (0.8- 4.8) 09/20/24 11:55 [facility] # (Auto) 0.7 10^3/uL (0.2- 0.9) 09/20/24 11:55 Eos # (Auto) 0.1 10^3/uL (0.0- 0.8) 09/20/24 11:55 Baso # (Auto) 0.1 10^3/uL (0.0- 0.1) 09/20/24 11:55 Nucleated RBC % (a uto) 0 % 09/20/24 11:55 Nucleated RBCs # 0.0 /100WBC 09/20/24 11:55 Sodium 138 mmol/L (136-1 45) 09/20/24 11:55 Potassium 3.4 mmol/L (3.5-5 .1) L 09/20/24 11:55 Chloride 99 mmol/L (98-107 ) 09/20/24 11:55 Carbon Dioxide 18 mmol/L (22-29) L 09/20/24 11:55 Anion Gap 24.4 (5-19) H 09/20/24 11:55 BUN 13 mg/dL (6-20) 09/20/24 11:55 Creatinine 0.9 mg/dL (0.7-1. 2) 09/20/24 11:55 GFR Calculation 104.6 mL/min (90- 130) 09/20/24 11:55 Glucose 112 mg/dL (65-115 ) 09/20/24 11:55 Calculated Osmolal ity 287 mOsm/kg (285- 295) 09/20/24 11:55 Calcium 9.9 mg/dL (8.5-10 .5) 09/20/24 11:55 Total Bilirubin 1.1 mg/dL (0.15-1 .2) 09/20/24 11:55 AST 20 U/L (0-40) 09/20/24 11:55 ALT 18 U/L (0-41) 09/20/24 11:55 Alkaline Phosphata se 125 U/L (40-130) 09/20/24 11:55 Total Protein 8.2 g/dL (6.6-8.7 ) 09/20/24 11:55 Albumin 5.0 g/dL (3.5-5.2 ) 09/20/24 11:55 Globulin 3.2 g/dL (1.3-4.6 ) 09/20/24 11:55 Salicylates < 0.3 mg/dL (3-10 ) L 09/20/24 11:55 Urine Opiates Scre en Negative ng/mL (N egative) 09/20/24 12:06 Acetaminophen < 5.0 ug/mL (10-3 0) L 09/20/24 11:55 Ur Barbiturates Sc reen Negative ng/mL (N egative) 09/20/24 12:06 Ur Phencyclidine S crn Negative ng/mL (N egative) 09/20/24 12:06 Ur Amphetamines Sc reen Negative ng/mL (N egative) 09/20/24 12:06 U Benzodiazepines Scrn Negative ng/mL (N egative) 09/20/24 12:06 Urine Cocaine Scre en Negative ng/mL (N egative) 09/20/24 12:06 U Marijuana (THC) Screen Positive ng/mL (N egative) H 09/20/24 12:06 Ethyl Alcohol < 10 mg/dL (0-10) 09/20/24 11:55 Vitals: Last Vital Signs Temp 97.6 F 09/23/24 06:00 Pulse 77 09/23/24 06:00 Resp 17 09/23/24 06:00 BP 128/72 09/23/24 06:00 Pulse Ox 99 09/23/24 06:00 O2 Del Method Room Air 09/22/24 06:00 Discharge Plan Discharge Patient Disposition: Home Condition: Stable Prescriptions: New fluoxetine 20 mg Capsule 20 mg PO DAILY 30 Days Qty: 30 1RF fluoxetine [Prozac] 20 mg capsule 20 mg PO DAILY Qty: 30 1RF Discharge Orders: Discharge Order (Routine); Ordered 09/23/24 Ordered By: Yosi Eller Referrals: Cele Gonzalez [Referring] - 10/08/24 9:45 am (Bring medications and ID) Discharge Diet: Usual diet Discharge Activity: Resume usual activity Patient Instructions: Fluoxetine (By mouth), Depression (DC), Anxiety (DC), Opioid Safety Discharge Attestations NPU Time Spent in Discharge Care*: less than 30 min Specific Discharge Activities: Specific discharge activities: educating patient, discussing with case management social worker/social workers/dc planners and documenting/other paperwork Coding Level of Care Code Acute Code for Chg Fwd Diagnoses Major depressive disorder, single episode, severe with anxious distress F32.2
[2024-09-23 14:43] VITALS: BP 128/72; PULSE 77; RESP 17; TEMP 36.4; O2SAT 99
== END 2024-09-23 16:04 | disposition home or self-care (01) | DRG 885 ==
LOC: ER 13:34 → NP 14:19
PROVIDERS: Admitting Provider Psychiatry & Neurology Psychiatry; Emergency Provider Emergency Medicine; Visit Provider Psychiatry & Neurology Psychiatry
DX: F32.2 Major depressive disorder, single episode, severe without psychotic features (principal); R45.851 Suicidal ideations; F41.9 Anxiety disorder, unspecified; F10.90 Alcohol use, unspecified, uncomplicated; F12.90 Cannabis use, unspecified, uncomplicated; F17.210 Nicotine dependence, cigarettes, uncomplicated
CPT/HCPCS: 80053; 80306; 80307; 85025; 97150; 97165; 99285